=== PATIENT | male | born 1985 | race Caucasian/White ===

== ENCOUNTER 2023-02-16 09:08 | Emergency (ER) | payer BC, SELFPAY ==
--- NOTE | 2023-02-16 09:28 | ED.URI ---
HPI - URI/Sore Throat General Chief Complaint: Upper Respiratory Infection Stated Complaint: Sore Throat Time Seen by Provider: 02/16/23 09:29 Source: patient Mode of arrival: ambulatory Limitations: no limitations History of Present Illness HPI Narrative: 38-year-old male presents with complaint of sore throat, fatigue, body aches, headaches for 5 days. Afebrile. Reports throat pain is constant, getting progressively worse. Noticed white spot to right tonsil last night. All systems reviewed and negative except as noted above. Related Data Home Medications Medication Instructions Recorded Confirmed fluoxetine 20 mg capsule 20 mg PO DIRECTED 02/16/23 02/16/23 Allergies Allergy/AdvReac Type Severity Reaction Status Date / Time No Known Allergies Allergy Verified 02/16/23 09:33 Review of Systems Review of Systems: CONSTITUTIONAL: Denies fever, chills, or sweats. reports fatigue. EYES: Denies visual changes, redness, or discharge. ENT: Denies rhinorrhea, congestion . Reports sore throat. Denies otalgia. CARDIOVASCULAR: Denies chest pain, palpitations, or edema. RESPIRATORY: Denies cough or dyspnea. GASTROINTESTINAL: Denies abdominal pain, nausea, vomiting, or diarrhea. GENITOURINARY: Denies dysuria or hematuria. SKIN: Denies rash or itching. MUSCULOSKELETAL: Denies back pain, joint pain . Reports myalgia. NEUROLOGIC: reports headache. Denies numbness, or weakness. PSYCHIATRIC: Denies anxiety or depression. All other systems reviewed are negative, except as documented in HPI. PMFSH Comments At time of signature, agree with nursing past medical, surgical, social and family history. There is no relevant family history pertinent to the presenting complaint. Exam Narrative: GENERAL: This is a well-nourished, well-developed patient, in no apparent distress. HEAD: normocephalic, atraumatic. EYES: PERRL. Sclera clear/white. Vision is grossly intact. EARS: External ears normal, auditory canals clear and without drainage, TMs normal without perforation. Hearing grossly intact. NOSE: External nose normal with no obvious nasal discharge, nares without redness, no rhinorrhea. THROAT: Mucous membranes moist, erythema to posterior pharynx. Tonsils 1+ bilaterally. White circular lesion to right tonsil possibly an exudate. Does not appear to be a tonsil stone. NECK: Neck supple, non-tender without lymphadenopathy, masses or thyromegaly. CARDIOVASCULAR: Regular rate and rhythm without murmurs, gallops, or rubs. RESPIRATORY: Clear to auscultation. Breath sounds equal bilaterally. No wheezes, rales, or rhonchi. SKIN: warm, Dry, intact with no suspicious lesions or rash, good texture and turgor. NEURO: awake, alert, and oriented to person, place and time. There were no obvious focal neurologic abnormalities. EXTREMITIES: No joint tenderness, effusion, or edema noted. Course Course Level of Care: Express Care Visit Vital Signs Vital signs: Vital Signs Temperature 35.8 C L 02/16/23 09:32 Pulse Rate 77 02/16/23 09:32 Respiratory Rate 18 02/16/23 09:32 Blood Pressure 127/78 02/16/23 09:32 Pulse Oximetry 99 02/16/23 09:32 Oxygen Delivery Room Air 02/16/23 09:32 Temperature 35.8 C L 02/16/23 09:32 Pulse Rate 77 02/16/23 09:32 Respiratory Rate 18 02/16/23 09:32 Blood Pressure 127/78 02/16/23 09:32 Pulse Oximetry 99 02/16/23 09:32 Oxygen Delivery Room Air 02/16/23 09:32 Reviewed MDM - URI/Sore Throat MDM Narrative Medical decision making narrative: negative rapid strep test. Culture ordered. Will treat patient with antibiotic due to patient's symptoms. recommend patient follow up primary care physician if lesion to right tonsil not improving. Patient is aware of diagnosis, understands and agrees to treatment plan. Anticipatory guidance given. Patient agrees to follow-up as directed and is aware of reasons to seek care at the emergency department. P
[2023-02-16 09:32] VITALS: BP 127/78; PULSE 77; RESP 18; TEMP 35.8; O2SAT 99
== END 2023-02-16 09:44 | disposition home or self-care (01) ==
PROVIDERS: Emergency Provider Nurse Practitioner Family
DX: J02.0 Streptococcal pharyngitis (principal); Z79.899 Other long term (current) drug therapy
CPT/HCPCS: 87081; 87880; 99213; G0463

== ENCOUNTER 2023-05-13 11:38 | Emergency (ER) | payer BC, SELFPAY ==
[2023-05-13 11:45] VITALS: BP 123/73; PULSE 79; RESP 18; TEMP 36.1; O2SAT 100
--- NOTE | 2023-05-13 12:32 | ED.GENADULT ---
HPI - General Adult General Chief complaint: Wound/Laceration Stated complaint: Cut Finger Rt Hand Time Seen by Provider: 05/13/23 12:32 Source: patient Mode of arrival: ambulatory Limitations: no limitations History of Present Illness HPI narrative: 8-year-old male patient presents to [facility] with complaints a laceration to the right middle finger. Patient states he was the garage using a gill box operator and accidentally cut the side of his right middle finger. Patient denies being diabetic. I noted when his last tetanus shot was. Denies that the gill box operator was dirty. Related Data Home Medications Medication Instructions Recorded Confirmed fluoxetine 20 mg capsule 20 mg PO DIRECTED 02/16/23 05/13/23 Allergies Allergy/AdvReac Type Severity Reaction Status Date / Time No Known Allergies Allergy Verified 05/13/23 11:56 Review of Systems Review of Systems: CONSTITUTIONAL: Denies fever, chills, or sweats. EYES: Denies visual changes, redness, or discharge. ENT: Denies rhinorrhea, congestion, sore throat, or otalgia. CARDIOVASCULAR: Denies chest pain, palpitations, or edema. RESPIRATORY: Denies cough or dyspnea. GASTROINTESTINAL: Denies abdominal pain, nausea, vomiting, or diarrhea. GENITOURINARY: Denies dysuria or hematuria. SKIN: Denies rash or itching. Positive lacerations the right middle finger MUSCULOSKELETAL: Denies back pain, joint pain, or myalgia. NEUROLOGIC: Denies headache, numbness, or weakness. PSYCHIATRIC: Denies anxiety or depression. [facility] Past Medical History Medical History (Updated 05/13/23 @ 12:48 by PAUL Louis) No significant past medical history Exam Narrative: GENERAL: Well-appearing, well-nourished, and in no acute distress. HEAD: Normocephalic, atraumatic. EYES: PERRLA and EOMI. ENT: Nares clear, no rhinorrhea or epistaxis. Mucous membranes moist. NECK: Supple. No lymphadenopathy CHEST: Clear to auscultation. No respiratory distress. HEART: Regular rate and rhythm. No murmur heard. Normal peripheral pulses. ABDOMEN: Soft, nontender, nondistended, normal active bowel sounds. EXTREMITIES: Normal range of motion. No edema. SKIN: Warm, dry, no rash. patient has horseshoe shaped laceration noted to the lateral side of the nail bed on the right middle finger. No active bleeding at this time. Laceration is well approximated. Patient has excellent range of motion and good cap refill. NEURO: No focal deficits. Alert and oriented x3. Course Course Level of Care: Express Care Visit Vital Signs Vital signs: Vital Signs Temperature 36.1 C L 05/13/23 11:45 Pulse Rate 79 05/13/23 11:45 Respiratory Rate 18 05/13/23 11:45 Blood Pressure 123/73 05/13/23 11:45 Pulse Oximetry 100 05/13/23 11:45 Oxygen Delivery Room Air 05/13/23 11:45 Temperature 36.1 C L 05/13/23 11:45 Pulse Rate 79 05/13/23 11:45 Respiratory Rate 18 05/13/23 11:45 Blood Pressure 123/73 05/13/23 11:45 Pulse Oximetry 100 05/13/23 11:45 Oxygen Delivery Room Air 05/13/23 11:45 Procedures Laceration Laceration 1: Date: 05/13/23 Time: 12:44 Site: hand ( Right middle finger) Side (If applicable): right Size (cm): 0.5 Description: flap (horseshoe shape) and clean Depth: simple, single layer Local Anesthetic: none Pre-repair: wound explored and irrigated ====== Skin Level ====== Skin layer closed with: dermabond ====== Subcutaneous Layer ====== ====== Muscle Layer ====== ====== Tendon Layer ====== Dressing: The Procedure was explained and verbal consent was obtained. Sterile drape and prep were done. Copious irrigation was done with saline and Shur-Clens and the wound was explored. There was no foreign body or deep structure injury noted. Patient had good range of motion. Wound edges were approximated with good alignment using Dermabond. nonadherent
[2023-05-13] MEDS: TETANUS,DIPHTHERIA,AC PERTUSSIS ADULT (0.5 ML) BOOSTRIX IM (12:48)
== END 2023-05-13 12:54 | disposition home or self-care (01) ==
PROVIDERS: Emergency Provider Nurse Practitioner Family; PCP Physician Assistant
DX: S61.212A Laceration without foreign body of right middle finger without damage to nail, initial encounter (principal); W26.8XXA Contact with other sharp object(s), not elsewhere classified, initial encounter; Z23 Encounter for immunization
CPT/HCPCS: 12001; 90471; 90715; 99212; G0463